=== PATIENT | male | born 1960 | race Caucasian/White ===

== ENCOUNTER → 2017-02-10 | Outpatient (CLI) | payer OTHER ==
[2017-02-10 08:42] LABS: Basophils # (A) 0.1 k/uL (0-0.2); Basophils % (A) 1 %; CH 30.3; CHCM 31.7; Eosinophils # (A) 0.2 k/uL (0-0.7); Eosinophils % (A) 4 %; HCT 45.3 % (39.0-53.0); HDW 2.22; HGB 14.8 gm/dL (13.0-17.5); Luc # (Auto) 0.17; Luc % (Auto) 3; Lymphocytes # (A) 2.3 k/uL (1.0-4.8); Lymphocytes % (A) 35 %; MCH 31.4 pg (25.0-35.0); MCHC 32.7 g/dL (31.0-37.0); Mean Platelet Volume 6.9; Monocytes # (A) 0.4 k/uL (0-1.0); Monocytes % (A) 6 %; Neutrophils # (A) 3.2 k/uL (1.3-7.7); Neutrophils % (A) 51 %; RBC 4.72 m/uL (4.30-5.90); RDW 12.3 % (11.5-15.5); WBC 6.4 k/uL (3.8-10.6); WBC (Perox) 6.44
--- NOTE | 2017-02-10 09:20 | XR ---
EXAMINATION TYPE: XR knee complete bilateral DATE OF EXAM: 02/10/2017 CLINICAL HISTORY: Bilateral knee pain with kneeling per patient. TECHNIQUE: Three views of the bilateral knee are obtained. In addition weightbearing frontal view of bilateral knees is acquired. COMPARISON: None. FINDINGS: There is no acute fracture/dislocation evident in either knee. There is mild to moderate s ymmetric joint space loss medial tibiofemoral compartment bilaterally on weightbearing frontal images . There is preservation of lateral and patellofemoral compartments. Small spur superior anterior pat ellar distal quadriceps tendon attachment is seen bilaterally. No significant spurring is otherwise s een. There is mild soft tissue swelling anteriorly in the left knee noted more prominent than opposit e right knee. IMPRESSION: There is mild to moderate medial symmetric compartment joint space loss on weightbearing frontal views consistent with product of osteoarthritis. Other findings as noted above.
[2017-02-10 10:05] LABS: Hemoglobin A1C 5.4 % (4.2-6.1)
[2017-02-10 11:47] LABS: ALT 46 U/L (21-72); AST 27 U/L (17-59); Alkaline Phosphatase 72 U/L (38-126); Anion Gap 10 mmol/L; Blood Urea Nitrogen 16 mg/dL (9-20); Calcium 9.5 mg/dL (8.4-10.2); Carbon Dioxide 28 mmol/L (22-30); Chloride 105 mmol/L (98-107); Cholesterol 171 mg/dL (<200); Glucose 92 mg/dL (74-99); HDL Cholesterol 41 mg/dL (40-60); Non-African American GFR(MDRD) >60 (>60 ml/min/1.73 sqM); Potassium 4.8 mmol/L (3.5-5.1); Sodium 143 mmol/L (137-145); Total Bilirubin 0.6 mg/dL (0.2-1.3); Total Protein 7.6 g/dL (6.3-8.2)
== END | disposition home or self-care (01) ==
LOC: LABWHC1 08:17
PROVIDERS: ATTEND Family Medicine
DX: M19.90 Unspecified osteoarthritis, unspecified site (principal); Z12.5 Encounter for screening for malignant neoplasm of prostate; Z00.00 Encounter for general adult medical examination without abnormal findings
CPT/HCPCS: 84439; 80061; 80053; 83036; 85025; 84443; 73562; 36415; G0103